=== PATIENT | female | born 1940 | race African-American/Black ===

== ENCOUNTER 2016-06-14 06:46 | Inpatient (IN) | payer MEDICARE ==
[2016-06-11 15:53] LABS: HEMOGLOBIN 11.8 g/dL (12.0-16.0)
[2016-06-11 15:55] LABS: BUN (BLOOD UREA NITROGEN) 22 MG/DL (6-23); CHLORIDE, SERUM 104 MMOL/L (96-112); CO2 (CARBON DIOXIDE) 29 MMOL/L (24-34); GFR AFRICAN AMERICAN 82 ML/MIN (>=60); GFR NON AFRICAN AMERICAN 71 ML/MIN (>=60); GLUCOSE, SERUM 102 MG/DL (60-99); POTASSIUM, SERUM 4.4 MMOL/L (3.5-5.3); SODIUM, SERUM 139 MMOL/L (135-148)
--- NOTE | ~2016-06-14 | OP ---
Record Of Operation [facility] [address] [place]. [address] NAME: GURPREET ABDULLAHI : 38 STATUS : ADM IN PAT#: [id number] AGE: 75 ADM/REG DATE : 06/14/16 MR#: [id number] REPORT SERV DATE: 06/14/16 DICTATED BY: MARGARITO SINGLETARY DATE: 06/14/16 REPORT STATUS : Draft TRANSCRIBED BY: MODCarrington DATE: 06/14/16 DATE OF PROCEDURE: 06/14/2016 PREOPERATIVE DIAGNOSIS: L3-L5 disk disease and stenosis with lumbar radiculopathy. POSTOPERATIVE DIAGNOSIS: L3-L5 disk disease and stenosis with lumbar radiculopathy. PROCEDURES: 1. L3 through L5 laminectomy and bilateral foraminotomies with decompression of the L3-L5 nerve roots bilaterally. 2. Use of neuromonitoring. SURGEON: Margarito Singletary DO. ANESTHESIA: General. ESTIMATED BLOOD LOSS: 30 mL. COMPLICATIONS: None. INDICATIONS: The patient is a pleasant 75-year-old female with intractable back pain, weakness in both legs, and gait disturbance. Failed conservative treatment; and after progressive deficit, elected to proceed with surgery. PROCEDURE IN DETAIL: I identified the patient in the holding area. Consent was obtained. Went to the operating room. Underwent general anesthesia with endotracheal intubation. Turned to prone position, prepped and draped in the usual sterile fashion. Operative safety pause was performed, and then we proceeded. A midline longitudinal incision was made over L3-L5 taken down to the fascial layer. Paraspinous muscles were elevated to the medial aspect of the facet joints. Self-retaining retractors were placed. A [place] elevator was placed, and lateral fluoroscopic image was used to verify operative level. [place] removed the spinous process and underlying lamina at L3 through L5. [place] removed the remaining lamina, and performed foraminotomies bilaterally. Partial facetectomies. The L3-L5 nerve roots were free of compression. Irrigation was performed. Hemostasis was achieved. A gram of vancomycin powder was sprinkled over the surgical wound. Subfascial drain was placed. Layered closure was performed. Sterile dressings were applied. The patient was awoken, extubated, and taken to the recovery room in stable condition. OPERATIVE FINDINGS: L3-5 stenosis with severe nerve compression. No sustained neuromonitoring alerts. RIGO/STEPHEN Margarito Figueroa Record Of Operation [facility] [address] [place]. [address] NAME: GURPREET ABDULLAHI : 38 STATUS : ADM IN PAT#: [id number] AGE: 75 ADM/REG DATE : 06/14/16 MR#: [id number] REPORT SERV DATE: 06/14/16 DICTATED BY: MARGARITO SINGLETARY DATE: 06/14/16 REPORT STATUS : Draft TRANSCRIBED BY: MODL DATE: 06/14/16 DO Gemini / [id number] CC: Margarito Singletary DO
--- NOTE | ~2016-06-14 | PREOPHP ---
PreOp History and Physical [address] [place]. [address] NAME: GURPREET ABDULLAHI : 36 STATUS : ADM IN [facility]#: [id number] AGE: 75 ADM/REG DATE : 06/14/16 MR#: [id number] REPORT SERV DATE: 06/14/16 DICTATED BY: MARGARITO AGARWAL DATE: 06/14/16 REPORT STATUS : Draft TRANSCRIBED BY: STEPHEN DATE: 06/14/16 CHIEF COMPLAINT: Back pain and bilateral leg weakness. HISTORY OF PRESENT ILLNESS: The patient is a 75-year-old with intractable back pain and feelings of weakness in bilateral lower extremities with difficulty with ambulating. REVIEW OF SYSTEMS: The patient denies chest pain, shortness of breath, and bowel or bladder changes. ALLERGIES: DENIED. HOME MEDICATIONS: Include alendronate, ibuprofen, Klor-Con, lisinopril, hydrochlorothiazide, meloxicam, nifedipine, simvastatin, tramadol. FAMILY HISTORY: Noncontributory. PAST MEDICAL HISTORY: Includes high cholesterol and hypertension. PHYSICAL EXAMINATION: VITAL SIGNS: Height 5 feet 1 inch, weight 149, BMI 28.2. GENERAL: The patient is healthy appearing, in no acute distress. PSYCH: Alert and oriented x3. Normal mood and affect. Gait is antalgic and somewhat unsteady. VASCULAR: No extremity swelling. SPINE: Decreased lumbar motion. HEART: Regular rate and rhythm. LUNGS: Clear to auscultation. ABDOMEN: Soft, nontender, nondistended with good bowel sounds. BREASTS: Deferred. RECTAL: Deferred. IMAGING: I have reviewed the MRI scan. The patient does have L3 through L5 disk disease and stenosis with nerve compression. ASSESSMENT: 1. Lumbar disk disease and stenosis. 2. Lumbar radiculopathy. 3. Gait disturbance and intractable pain. PLAN: The patient presents today for surgical intervention. Consent was obtained. All questions were answered. The patient is ready to proceed with surgery. RIGO/STEPHEN Margarito Figueroa PreOp History and Physical [address] [place]. [address] NAME: GURPREET ABDULLAHI : 38 STATUS : ADM IN PAT#: [id number] AGE: 75 ADM/REG DATE : 06/14/16 MR#: [id number] REPORT SERV DATE: 06/14/16 DICTATED BY: MARGARITO AGARWAL DATE: 06/14/16 REPORT STATUS : Draft TRANSCRIBED BY: MODL DATE: 06/14/16 DO Gemini / [id number] CC: DO Ramin Triplett M.D.
--- NOTE | ~2016-06-14 | DS ---
Discharge Summary [facility] [address] [place]. [address] NAME: GURPREET ADBULLAHI : 36 STATUS : DIS IN PAT#: [id number] AGE: 75 ADM/REG DATE : 06/14/16 MR#: [id number] REPORT SERV DATE: 06/24/16 DICTATED BY: MARGARITO SINGLETARY DATE: 06/23/16 REPORT STATUS : Draft TRANSCRIBED BY: STEPHEN DATE: 06/23/16 Data Collection from hospitalization DISCHARGE DIAGNOSES: 1. L3-L5 disk disease and stenosis. 2. Lumbar radiculopathy. 3. Hypertension. 4. Hypercholesterolemia. CONSULTATIONS: Dr. Jair Poole. PROCEDURES PERFORMED: L3 through L5 laminectomy and bilateral foraminotomies with decompression of the L3-L5 nerve roots bilaterally, use of neuro monitoring, 06/14/2016. PATHOLOGY: Tissue from lumbar spine area; benign soft tissue, skeletal muscle, bone, and cartilage including medullary bone with bone marrow particles with trilineage hematopoiesis. MEDICATIONS: Prinzide one daily, Klor-Con 10 mEq as directed, Zocor 40 mg at bedtime, Flexeril 10 mg every eight hours as needed, Percocet 5/325 one or two every four hours as needed, Metamucil one packet as needed, Adalat CC 30 mg daily. CONDITION AT DISCHARGE: Upon discharge, she did appear to be doing well and had no complaints. DISPOSITION: She had been discharged home to continue a regular diet with a protein shake with meals. She was to have activity as discussed. She was to follow up with Ajay May on 06/28/2016. HOSPITAL COURSE: This 75-year-old female had intractable back pain and feelings of weakness in her lower extremities with difficulty with ambulating. She had failed nonoperative treatment and was admitted for surgery and further treatment. Upon admission to the hospital, she had been taken to the operating room, where she did undergo the above procedure. She had tolerated this well and was transferred to the recovery room. She was then seen later that same day by Dr. Jair Poole for medical management and she was to continue her home blood pressure medications and monitoring. Her hemoglobin was noted to have dropped from 11.8 to 9.6 postoperatively, and this was also to be monitored. On postop day #1, she did have good pain control, FACILITIES ADMINISTRATOR was discontinued, and she had been evaluated by Physical Therapy. On postop day #2, she did continue to do well and had no new complaints. She was continued on supportive care. She did remain in stable condition and had continued to slowly improve. She was then discharged on postop day #4 with the above instructions. Information collected by: Mariaelena Chavez. I submit the above information as my discharge summary. ABHINAV/STEPHEN Discharge Summary [facility] [address] [place]. [address] NAME: GURPREET ABDULLAHI : 36 STATUS : DIS IN PAT#: [id number] AGE: 75 ADM/REG DATE : 06/14/16 MR#: [id number] REPORT SERV DATE: 06/24/16 DICTATED BY: MARGARITO SINGLETARY DATE: 06/23/16 REPORT STATUS : Draft TRANSCRIBED BY: KRAIGL DATE: 06/23/16 Margarito Singletary DO / [id number] CC: DO Ramin Triplett M.D.
--- NOTE | ~2016-06-14 | PREOPHP ---
PreOp History and Physical [id number] [place]. [address] NAME: GURPREET ABDULLAHI : 38 STATUS : ADM IN [facility]#: [id number] AGE: 75 ADM/REG DATE : 06/14/16 MR#: [id number] REPORT SERV DATE: 06/14/16 DICTATED BY: MARGARITO SINGLETARY DATE: 06/14/16 REPORT STATUS : Draft TRANSCRIBED BY: STEPHEN DATE: 06/14/16 CHIEF COMPLAINT: Back pain and bilateral lower extremity pain, and weakness. HISTORY OF PRESENT ILLNESS: The patient is a pleasant 75-year-old female with intractable back pain and bilateral lower extremity weakness, difficulty with ambulating. After discussion of risks and benefits, and progressive neurologic decline, the patient elected to proceed with surgical intervention. ALLERGIES: DENIED. HOME MEDICATIONS: Include alendronate, ibuprofen, Klor-Con, lisinopril, hydrochlorothiazide, meloxicam, nifedipine, simvastatin, and tramadol. REVIEW OF SYSTEMS: She denies chest pain, shortness of breath, and bowel or bladder changes. FAMILY HISTORY: Noncontributory. PAST MEDICAL HISTORY: High cholesterol and hypertension. DICTATION ENDS HERE RIGO/STEPHEN Margarito Singletary DO / [id number] CC: DO Ramin Triplett M.D.
--- NOTE | ~2016-06-14 | CN ---
Consultation Report [facility] [address] [place]. [address] NAME: GURPREET ABDULLAHI : 36 STATUS : ADM IN [facility]#: [id number] AGE: 75 ADM/REG DATE : 06/14/16 MR#: [id number] REPORT SERV DATE: 06/14/16 DICTATED BY: GIANA HERNANDEZ II DATE: 06/14/16 REPORT STATUS : Draft TRANSCRIBED BY: MODCarrington DATE: 06/14/16 CONSULTATION NOTE DATE OF CONSULTATION: REASON FOR CONSULTATION: Hypertension. HISTORY OF PRESENT ILLNESS: The patient is a 75-year-old female, with history of hypertension, hyperlipidemia, who presented to [facility] for an elective laminectomy, due to spinal stenosis, degenerative disk disease, and radiculopathy. Currently, the patient is postop and the hospital service was consulted for hypertension. Currently, blood pressure 113/60. Otherwise, the patient has some postoperative pain, but denies any current complaints. Denies any shortness of breath, nausea, vomiting, or diarrhea. REVIEW OF SYSTEMS: A 10-point review of systems was otherwise negative except for HPI. PAST MEDICAL HISTORY: Hypertension, hyperlipidemia, degenerative disk disease, and spinal stenosis. PAST SURGICAL HISTORY: Hysterectomy and now lumbar laminectomy. SOCIAL HISTORY: The patient denies history of alcohol, tobacco, or drug use. FAMILY HISTORY: Significant for heart disease in her parents and cancer in her brother. HOME MEDICATIONS: Prinzide, Mobic, nifedipine, potassium, Psyllium, and Zocor. PHYSICAL EXAMINATION: VITAL SIGNS: Blood pressure 130/70, heart rate 70, respiratory rate 16, O2 saturation 98% on room air. GENERAL: The patient is alert and oriented x3. In no acute distress. NECK: Supple. Nontender. No lymphadenopathy. No thyromegaly. HEENT: Moist mucous membranes. Pupils are equal, round, reactive to light. Conjunctivae clear. CARDIOVASCULAR: Regular rate and rhythm. No murmurs, rubs, or gallops. ABDOMEN: Soft, nontender, and nondistended. Normoactive bowel sounds. EXTREMITIES: No cyanosis, clubbing, or edema. SKIN: No lesions rashes or wounds. NEUROLOGIC: No focal deficits. LABORATORY DATA: White blood cell count 6.8, hemoglobin 9.6, platelets 202, sodium 141, potassium 3.2, glucose 132, and calcium 8.3. Consultation Report [facility] [address] [place]. [address] NAME: GURPREET ABDULLAHI : 38 STATUS : ADM IN PAT#: [id number] AGE: 75 ADM/REG DATE : 06/14/16 MR#: [id number] REPORT SERV DATE: 06/14/16 DICTATED BY: GIANA HERNANDEZ II DATE: 06/14/16 REPORT STATUS : Draft TRANSCRIBED BY: TSEPHEN DATE: 06/14/16 ASSESSMENT: The patient is a 75-year-old female with: 1. Spinal stenosis, degenerative disk disease, and radiculopathy, status post laminectomy done by Dr. Singletary. 2. History of hypertension and hyperlipidemia. 3. Acute blood loss anemia. PLAN: As the patient is currently normotensive, I agree with continuing her home blood pressure medicines and monitoring. Otherwise, her hemoglobin has dropped from around 11.8 to 9.6 postoperatively, so, monitor the patient's hemoglobin. Otherwise, we will follow along with you. LIDIA/STEPHEN Giana Hernandez II, MD / [id number] CC: Margarito Singletary DO
[~2016-06-14 06:46] MED LIST: ADALAT CC30 MG PO; AFEDITAB30 MG PO; KLOR-CON 1010 MEQ PO; KLOR-CON M2020 MEQ PO; METPAKSF PO; MOBIC15 MG PO; MOBIC7.5 PO; PRINZIDE1 TAB PO; ZOCOR20 PO
[2016-06-14 11:56] LABS: BASOPHILS 0.4 %; BASOPHILS ABSOLUTE 0.03 10/3/uL (0.0-0.16); EOSINOPHILS 1.2 %; EOSINOPHILS ABSOLUTE 0.08 10/3/uL (0.0-0.53); HEMOGLOBIN 9.6 g/dL (12.0-16.0); IMMATURE GRANULOCYTES 0.1 %; IMMATURE GRANULOCYTES ABSOLUTE 0.01 10/3/uL (0.0-0.11); LYMPHOCYTES 38.7 %; LYMPHOCYTES ABSOLUTE 2.63 10/3/uL (0.67-4.30); MEAN CORPUS HGB CONC 32.7 g/dL (32.0-36.0); MEAN CORPUSCULAR HEMOGLOB 28.4 pg (26.0-34.0); MEAN PLATELET VOLUME 8.5 fL (9.2-13.0); MONOCYTES 9.4 %; MONOCYTES ABSOLUTE 0.64 10/3/uL (0.21-1.20); NEUTROPHILS 50.2 %; PLATELET COUNT 202 10/3/uL (150-400); RBC DISTRIBUTION WIDTH 13.8 % (12.0-16.0); RED CELL COUNT 3.38 10/6/uL (4.0-5.6); WHITE BLOOD CELLS 6.8 10/3/uL (4.5-10.5)
[2016-06-14 11:57] LABS: HEMATOCRIT 29.4 % (36.0-48.0); MANUAL DIFF NO %
[2016-06-14 12:09] LABS: CALCIUM, SERUM 8.3 MG/DL (8.5-10.4); CHLORIDE, SERUM 106 MMOL/L (96-112); CO2 (CARBON DIOXIDE) 26 MMOL/L (24-34); CREATININE 0.79 MG/DL (0.55-1.02); GFR AFRICAN AMERICAN 84 ML/MIN (>=60); GFR NON AFRICAN AMERICAN 72 ML/MIN (>=60); SODIUM, SERUM 141 MMOL/L (135-148)
[2016-06-14 12:11] LABS: BUN (BLOOD UREA NITROGEN) 16 MG/DL (6-23); GLUCOSE, SERUM 132 MG/DL (60-99); POTASSIUM, SERUM 3.2 MMOL/L (3.5-5.3)
[2016-06-15 05:15] LABS: BASOPHILS 0.1 %; BASOPHILS ABSOLUTE 0.01 10/3/uL (0.0-0.16); EOSINOPHILS 0.5 %; EOSINOPHILS ABSOLUTE 0.04 10/3/uL (0.0-0.53); HEMOGLOBIN 10.3 g/dL (12.0-16.0); IMMATURE GRANULOCYTES 0.2 %; IMMATURE GRANULOCYTES ABSOLUTE 0.02 10/3/uL (0.0-0.11); LYMPHOCYTES 19.7 %; LYMPHOCYTES ABSOLUTE 1.69 10/3/uL (0.67-4.30); MEAN CORPUS HGB CONC 31.3 g/dL (32.0-36.0); MEAN CORPUSCULAR HEMOGLOB 27.8 pg (26.0-34.0); MEAN CORPUSCULAR VOLUME 88.9 fL (80-100); MEAN PLATELET VOLUME 9.3 fL (9.2-13.0); MONOCYTES 10.1 %; MONOCYTES ABSOLUTE 0.87 10/3/uL (0.21-1.20); NEUTROPHILS 69.4 %; NEUTROPHILS ABSOLUTE 5.97 10/3/uL (2.02-8.40); PLATELET COUNT 224 10/3/uL (150-400); RBC DISTRIBUTION WIDTH 13.8 % (12.0-16.0); WHITE BLOOD CELLS 8.6 10/3/uL (4.5-10.5)
[2016-06-15 05:19] LABS: HEMATOCRIT 32.9 % (36.0-48.0); MANUAL DIFF NO %
[2016-06-15 06:25] LABS: CALCIUM, SERUM 8.6 MG/DL (8.5-10.4); CHLORIDE, SERUM 109 MMOL/L (96-112); CO2 (CARBON DIOXIDE) 26 MMOL/L (24-34); CREATININE 0.85 MG/DL (0.55-1.02); GFR AFRICAN AMERICAN 77 ML/MIN (>=60); GFR NON AFRICAN AMERICAN 66 ML/MIN (>=60); GLUCOSE, SERUM 144 MG/DL (60-99); SODIUM, SERUM 144 MMOL/L (135-148)
[2016-06-15 06:28] LABS: BUN (BLOOD UREA NITROGEN) 10 MG/DL (6-23); POTASSIUM, SERUM 4.1 MMOL/L (3.5-5.3)
[2016-06-18] MEDS ORDERED: FLEX PO (15:17)
[2016-06-18] MEDS ORDERED: PCET PO (15:17)
== END 2016-06-18 16:46 | disposition home or self-care (01) | DRG 516 ==
LOC: SDC/OF 06:46 → PACU 11:42 → 3SO 13:42
PROVIDERS: Orthopaedic Surgery
PROC: 01NB0ZZ Release Lumbar Nerve, Open Approach (ICD-10-PCS; principal; 2016-06-14 08:15)
DX: M51.16 Intervertebral disc disorders with radiculopathy, lumbar region (principal); D62 Acute posthemorrhagic anemia; I10 Essential (primary) hypertension; E78.5 Hyperlipidemia, unspecified; E78.00 Pure hypercholesterolemia, unspecified
CPT/HCPCS: 76000; 80048; 85014; 85018; 85025; 88304; 88311; 93005; 97110-GP; 97116-GP; 97162-GP; 97530-GP; A9270-GY; C1713; G8978-CK-GP; G8979-CJ-GP; J0690; J2250; J2270; J2370; J2405; J2710; J3010; J3370; P9045